=== PATIENT | male | born 1990 | race Caucasian/White ===

== ENCOUNTER 2022-10-30 13:36 | Emergency (ER) | payer OTHER ==
[2022-10-30] MEDS ORDERED: DIAZEPAM 5 MG TABLET ONE (14:07)
[2022-10-30] MEDS ORDERED: HYDROCODONE/APAP 5/325 MG TAB ONE (14:07)
--- NOTE | 2022-10-30 15:42 | EDPHYS ---
Physician Documentation [facility] Name: Kenny Armstrong Age: 32 yrs Sex: Male : 1990 Arrival Date: 10/30/2022 Time: 13:36 Bed 18 Private MD: ED Physician Darien Baptiste HPI: 10/30 14:55 This 32 yrs old Male presents to ER via EMS with complaints of back pain. ms3 14:55 32-year-old male with no past medical history presents emergency department via [address] [facility] for low back pain. 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 Patient states the pain is currently a 3/10 and when it spasms is an 8/10. Patient denies incontinence, weakness, numbness.. Historical: - Allergies: 14:00 No Known Allergies; nj1 - PMHx: 14:00 None; nj1 - PSHx: 14:00 None; nj1 - Immunization history:: Client reports having NOT received the Covid vaccine. - Social history:: Smoking status: Reported history of juuling and/or vaping. ROS: 14:55 Constitutional: Negative for fever, and chills. Neck: Negative for injury, pain, and ms3 swelling, Cardiovascular: Negative for chest pain, and palpitations. Respiratory: Negative for shortness of breath, cough, wheezing, and pleuritic chest pain, Abdomen/GI: Negative for abdominal pain, nausea, vomiting, diarrhea, and constipation. 14:55 MS/Extremity: Negative for injury and deformity, Skin: Negative for injury, rash, and discoloration. 14:55 Back: Positive for back pain. 14:55 All other systems are negative. Exam: 14:55 Constitutional: This is a well developed, well nourished patient who is awake, alert, ms3 and in no acute distress. Head/Face: Normocephalic, atraumatic. Neck: Trachea midline, no cervical lymphadenopathy. Supple, full range of motion without nuchal rigidity, or vertebral point tenderness. No Meningismus. Chest/axilla: Normal chest wall appearance and motion. Nontender with no deformity. Cardiovascular: Regular rate and rhythm with a normal S1 and S2. No gallops, murmurs, or rubs. Normal PMI, no JVD. No pulse deficits. Respiratory: Lungs have equal breath sounds bilaterally, clear to auscultation and percussion. No rales, rhonchi or wheezes noted. No increased work of breathing, no retractions or nasal flaring. Abdomen/GI: Soft, non-tender, with normal bowel sounds. No distension or tympany. No guarding or rebound. No evidence of tenderness throughout. Skin: Warm, dry with normal turgor. Normal color with no rashes, no lesions, and no evidence of cellulitis. MS/ Extremity: Pulses equal, no cyanosis. Neurovascular intact. Full, normal range of motion. 14:55 Back: pain, that is moderate, of the left low back and right low back, ROM is normal, normal spinal alignment noted, CVA tenderness, muscle spasm, is appreciated in the left low back and right low back. Vital Signs: 14:00 BP 106 / 65; Pulse 69; Resp 18; Temp 97.5(O); Pulse Ox 98% on R/A; Weight 117.03 kg; nj1 Height 5 ft. 10 in. ; Pain 10/10; 15:00 BP 103 / 59; Pulse 61; Resp 16; Pulse Ox 96% on R/A; Pain 6/10; nj1 16:15 BP 99 / 59; Pulse 72; Resp 16; Pulse Ox 99% on R/A; Pain 3/10; nj1 14:00 Body Mass Index 37.02 (117.03 kg, 177.8 cm) nj1 14:00 Pain Scale: Adult nj1 15:00 Pain Scale: Adult nj1 16:15 Pain Scale: Adult nj1 MDM: 13:47 Patient medically screened. ms3 14:55 Differential diagnosis: Metastatic Disease vertebral fracture, muscle spasm. ms3 15:52 Data reviewed: vital signs, nurses notes, and as a result, I will discharge patient. I ms3 considered the following discharge prescriptions or medication management in the emergency department Medications were administered in the Emergency Department. See MAR. Administered Medications: 14:01 Drug: HYDROcodone-acetaminophen PO 5 mg-325 mg 1 tabs Route: PO; [facility] 15:00 Follow up: Response: No adverse reaction; Pain is decreased nj1 14:01 Drug: Diazepam PO 5 mg Route: PO; [facility] 15:37 Follow up: Response: No adverse reaction [facility] Disposition Summary: 10/30/22 15:41 Discharge Ordered Location: Home ms3 Condition: Stable ms3 Diagnosis - Low back pain ms3 - Muscle spasm of back ms3 Followup: ms3 - With: - When: 2 - 3 days - Reason: Recheck today's complaints Discharge Instructions: - Discharge Summary Sheet ms3 - Acute Back Pain, Adult ms3 - Spasticity ms3 Forms: - Medication Reconciliation Form ms3 - Thank You Letter ms3 - Antibiotic Education ms3 - Prescription Opioid Use ms3 Prescriptions: - Ibuprofen 600 mg Oral Tablet - take 1 tablet by ORAL route every 6 hours As needed take with food; 30 tablet; ms3 Refills: 0, Product Selection Permitted - Cyclobenzaprine 10 mg Oral Tablet - take 1 tablet by ORAL route every 8 hours As needed; 30 tablet; Refills: 0, ms3 Product Selection Permitted Signatures: Darien Baptiste DO DO ms3 Mary Anne Watkins RN RN nj1
--- NOTE | 2022-10-30 15:42 | ER ---
Nurse's Notes [facility] [place] Name: Kenny Armstrong Age: 32 yrs Sex: Male : 1990 Arrival Date: 10/30/2022 Time: 13:36 Bed 18 Private MD: Diagnosis: Low back pain;Muscle spasm of back Presentation: 10/30 13:38 Chief complaint: EMS states: patient was bending over to grab groceries and felt a nj1 sudden sharp pain in his back, hurting since. 13:38 Coronavirus screen: Vaccine status: Patient reports being unvaccinated. Ebola Screen: nj1 Patient denies travel to an Ebola-affected area in the 21 days before illness onset. 13:38 Method Of Arrival: EMS: [place] [id number] 14:00 Initial Sepsis Screen: Does the patient meet any 2 criteria? No. Patient's initial [facility] sepsis screen is negative. Does the patient have a suspected source of infection? No. Patient's initial sepsis screen is negative. Risk Assessment: Do you want to hurt yourself or someone else? Patient reports no desire to harm self or others. Onset of symptoms was October 30, 2022. 14:00 Acuity: STEPHANIE 3 nj Historical: - Allergies: 14:00 No Known Allergies; nj1 - PMHx: 14:00 None; nj1 - PSHx: 14:00 None; nj1 - Immunization history:: Client reports having NOT received the Covid vaccine. - Social history:: Smoking status: Reported history of juuling and/or vaping. Screenin:00 [facility] ED Fall Risk Assessment (Adult) History of falling in the last 3 months, [facility] including since admission No falls in past 3 months (0 pts) Confusion or Disorientation No (0 pts) Intoxicated or Sedated No (0 pts) Impaired Gait No (0 pts) Mobility Assist Device Used No (0 pt) Altered Elimination No (0 pt) Score/Fall Risk Level 0 - 2 = Low Risk Oriented to surroundings, Maintained a safe environment, Hourly rounding (assess needs \T\ fall precautionary measures) done. 14:00 Abuse screen: Denies threats or abuse. Denies injuries from another. Nutritional nj1 screening: No deficits noted. Tuberculosis screening: No symptoms or risk factors identified. Assessment: 14:27 General: Appears in no apparent distress. uncomfortable, Behavior is calm, cooperative, nj1 appropriate for age. Pain: Complains of pain in back Pain currently is 10 out of 10 on a pain scale. Neuro: Level of Consciousness is awake, alert, obeys commands, Oriented to person, place, time, situation. Cardiovascular: Patient's skin is warm and dry. Respiratory: Airway is patent Respiratory effort is even, unlabored. Musculoskeletal: Reports pain in back. 15:00 Reassessment: Patient appears in no apparent distress at this time. Patient and/or nj1 family updated on plan of care and expected duration. Pain level reassessed. Patient is alert, oriented x 3, equal unlabored respirations, skin warm/dry/pink. Pain: Complains of pain in back Pain currently is 6 out of 10 on a pain scale. 16:15 Reassessment: Patient appears in no apparent distress at this time. Patient and/or nj1 family updated on plan of care and expected duration. Pain level reassessed. Patient is alert, oriented x 3, equal unlabored respirations, skin warm/dry/pink. Patient states feeling better. Patient states symptoms have improved. Vital Signs: 14:00 BP 106 / 65; Pulse 69; Resp 18; Temp 97.5(O); Pulse Ox 98% on R/A; Weight 117.03 kg; nj1 Height 5 ft. 10 in. ; Pain 10/10; 15:00 BP 103 / 59; Pulse 61; Resp 16; Pulse Ox 96% on R/A; Pain 6/10; nj1 16:15 BP 99 / 59; Pulse 72; Resp 16; Pulse Ox 99% on R/A; Pain 3/10; nj1 14:00 Body Mass Index 37.02 (117.03 kg, 177.8 cm) nj1 14:00 Pain Scale: Adult nj1 15:00 Pain Scale: Adult nj1 16:15 Pain Scale: Adult ri1 ED Course: 13:45 Patient arrived in ED. kj1 13:47 Darien Baptiste DO is Attending Physician. ms3 13:53 Mary Anne Watkins, CLAIR is Primary Nurse. nj1 14:00 Arm band placed on. nj1 14:00 Patient has correct armband on for positive identification. Bed in low position. Call [facility] light in reach. Adult w/ patient. 14:22 Triage completed. nj1 15:41 Addi Mena DO is Referral Physician. ms3 16:15 No provider procedures requiring assistance completed. nj1 16:15 Patient did not have IV access during this emergency room visit. nj1 Administered Medications: 14:01 Drug: HYDROcodone-acetaminophen PO 5 mg-325 mg 1 tabs Route: PO; nj1 15:00 Follow up: Response: No adverse reaction; Pain is decreased nj1 14:01 Drug: Diazepam PO 5 mg Route: PO; nj1 15:37 Follow up: Response: No adverse reaction nj1 Medication: 16:20 VIS not applicable for this client. nj1 Outcome: 15:41 Discharge ordered by MD. ms3 16:15 Discharged to home ambulatory, via wheelchair, with family. nj1 16:15 Condition: stable 16:15 Discharge instructions given to patient, Instructed on discharge instructions, follow up and referral plans. medication usage, Demonstrated understanding of instructions, follow-up care, medications, Prescriptions given X 2. 16:20 Patient left the ED. nj1 Signatures: Nini Morrow kj1 Darien Baptiste DO DO ms3 Risa Eason bc6 Mary Anne Watkins, RN RN nj1 Corrections: (The following items were deleted from the chart) 16:49 16:46 Patient left the ED. dani post1
[2022-10-30 16:51] VITALS: TEMP 97.5
[2022-10-30 16:52] VITALS: BP 103/59; O2SAT 96
== END 2022-10-30 16:46 | disposition home or self-care (01) ==
LOC: ER 13:36
DX: M62.830 Muscle spasm of back (principal)
CPT/HCPCS: 99284

== ENCOUNTER 2023-06-15 07:32 | Day surgery (SDC) | payer OTHER ==
[2023-06-10 11:55] LABS: Absolute Lymphocytes (CBC) 2.6 K/uL (0.7-4.9); Hematocrit 44.9 % (39.6-49.0); Lymphocytes % 40.4 % (15.3-44.8); MCV 89.4 fL (80-100); MPV 7.9 fL (7.6-11.3); Platelets 320 thou/uL (152-406); RBC Red Blood Cell Count 5.03 M/uL (4.33-5.43)
[2023-06-10 12:02] LABS: Potassium 3.9 mEq/L (3.5-5.1)
[2023-06-15] MEDS ORDERED: Ringers Lactate 1,000 ML IV ONE (07:56)
[2023-06-15] MEDS ORDERED: CEFAZOLIN SODIUM 1 GM/VIAL ONE ×2 (07:56→08:55)
[2023-06-15] MEDS ORDERED: KETOROLAC 30 MG/ML INJ ONE (08:01)
[2023-06-15] MEDS ORDERED: KETAMINE HCL IN 0.9 % NACL 50 MG/5 ML SYRINGE IV ONE (08:01)
[2023-06-15] MEDS ORDERED: propofoL 200 MG/20 ML VIAL IV ONE (08:01)
[2023-06-15] MEDS ORDERED: LIDOCAINE 2% MPF 5 ML VIAL ONE (08:01)
[2023-06-15] MEDS ORDERED: dexAMETHasone 10 MG/ML VIAL ONE (08:01)
[2023-06-15] MEDS ORDERED: FENTANYL CITR 100 MCG/2 ML ONE (08:01)
[2023-06-15] MEDS ORDERED: ROCURONIUM 50 MG/5 ML VIAL IV ONE (08:01)
[2023-06-15] MEDS ORDERED: ONDANSETRON 4 MG/2 ML VIAL ONE (08:01)
[2023-06-15] MEDS ORDERED: MIDAZOLAM HCL 2 MG/2 ML INJ ONE (08:01)
[2023-06-15] MEDS ORDERED: MUPIROCIN 2% OINT 22GM TUBE TOP ONE (08:32)
--- NOTE | 2023-06-15 10:07 | P.BOP ---
Preoperative diagnosis: tender ventral and umbilical hernia Postoperative diagnosis: same Primary procedure: 1. Laproscopic repair of incarcerated tender upper ventral hernia with mesh Secondary procedure: 2. Laproscopic repair of incarcerated tender umbilical hernia with mesh Estimated blood loss: <20cc Specimen: sac and content Findings: multiple hernias Anesthesia: General Complications: None Implants: vetralight ST with echo PS 15 cm Transferred to: Recovery Room Condition: Good
[2023-06-15] MEDS: MORPHINE 4 MG/ML SYR ONE ×2 (10:32→10:37)
[2023-06-15 11:19] VITALS: BP 117/86; TEMP 96.9; O2SAT 95
[2023-06-15] MEDS ORDERED: HYDROCODONE/APAP 10/325 TAB PO ONE (11:25)
[2023-06-15] MEDS ORDERED: HYDROCODONE/APAP 10/325 TAB ONE (11:29)
--- NOTE | 2023-06-16 15:56 | OP ---
Surgeon: Lionel Clark MD Preoperative Diagnosis: Tender ventral and umbilical hernia about 3 cm. Postoperative Diagnoses: Tender ventral and umbilical hernia about 3 cm, umbilical pain. Procedures Performed: 1.Laparoscopic repair of incarcerated open ventral hernia with mesh about 3.5 cm. 2.Laparoscopic repair of incarcerated tender umbilical hernia with mesh about 3 cm. Those are 2 dif ferent hernias. Estimated Blood Loss: Less than 20 cc. Specimen: Hernia sac and contents. Findings: Multiple hernias. Anesthesia: General plus local. Complications: None. Implants: Ventralight ST with Echo positioning system about 15 cm. Complications: None. Indications: This is a case of a 32-year-old patient, who came with 2 problems, 1 lump in the mid ve ntral region and another lump on the umbilical area. Both of them are tender during pain and discomf ort, is not allowing him to work and modify his social life, so he wants that repaired. The benefits , alternatives, and risks of laparoscopic versus open repair of ventral and umbilical hernia fully ex plained, which include, but not limited to infection, bleeding, damage to adjacent structures, anesth esia complication, recurrence, CA and even . He also understands this may not relieve any sympt oms. He might need more than one surgical intervention. He does not understand we might have to use mesh in that region and pros and cons of mesh were explained to the patient. He signed a consent. Description Of Procedure: The patient was brought to the operating room and placed in supine positio n. Anesthesia was done without complication. Abdominal area was prepped and draped in sterile fashi on. We noticed the patient has multiple scratches in his abdomen. He says he was winterizing his ho use yesterday due to a hard freeze coming to this area in [place] recently and he was not careful enoug h and developed many scratches. At least, they are not on the trocar site area, but we want to make sure that he keeps those areas clean to avoid cross contamination in the next few days. So, we were trying to pick areas that does not have the scratches. The first was done in the umbilical region. Incision was carried down until we have a hernia sac. Hernia sac was opened and then Vicryl #1 place d inside the fascia and Ross trocar was placed in and no bleeding was obtained. This allowed me to see his problem in the ventral region. Once again, another hernia in that region is bigger than the one umbilical area. The umbilicus was about 3 cm. The ventral region was about almost 4 cm. Even though there different locations, our plan is just to refer each one individually and then put a piec e of mesh to overlap both places by 3-5 cm. So, we cleaned the fascia edges of the umbilical region first. Obviously, we have to use LigaSure. There were some adhesions involved to it, especially to the ventral region. Once we removed the adhesions, we were able to reduce the incarcerated omentum p resent of those hernias. Once we got that, we have fascia edges cleaned and noticed that it was a li ttle bit easier for the patient to just make a small incision on the ventral region and repair that d efect primarily on top of the laparoscopic repair. So, we made a small incision, clean the fascia ed ges, approximated that with a Vicryl. After that, we obtained pneumoperitoneum again to look from in side, now we have a seal. We put selected a 15 cm mesh once again to overlap both areas early to 3-1 5 cm that is a Ventralex ST mesh, put it through the one of the incisions and then inflate the balloo n laparoscopically and removed the Ross trocar since this is the area we are using to put a mesh th rough. Then, we approximated the Vicryl in the umbilical region and enough to be able to inflate the balloon and secure that mesh using SorbaFix, and then the balloon catheter was removed. The balloon was then removed under direct visualization of the abdomen and further fixation circumferentially wa s done of the mesh to make sure a good opposition against the peritoneum. At that moment, we already closed also the umbilical hernia with a [id number] fashion Vicryl. Once we have that laparosco pic, we looked at the area of the lysis of adhesions. There was no bleeding and then when we looked at the hernia, they were not just airproof but also the mesh is underneath nice and flat, covering azeb th defects. At that moment, I proceeded to carefully deflate the pneumoperitoneum, removed the troca rs under direct visualization. We closed the subcutaneous tissue with 3-0 chromic and skin with stap les. Sponge count and instrument count correct. The patient tolerated the procedure well. The eloy ent was sent to recovery in stable condition. Disposition: Home. Activity: As tolerated. No heavy lifting. Plan: Follow up in my office in 1 week. Call for appointment at [phone]. Abdominal binder while o ut of bed. Keep area dry for 48 hours, then may shower. Keep the adeola intact. PEDRO PABLO/MODL Voice ID: [id number] Report ID: [id number]
== END 2023-06-15 11:49 | disposition home or self-care (01) ==
LOC: OR 07:32
PROVIDERS: ATTEND Surgery
PROC: 0WUF4JZ Supplement Abdominal Wall with Synthetic Substitute, Percutaneous Endoscopic Approach (ICD-10-PCS; principal; 2023-06-15 08:30)
DX: K42.0 Umbilical hernia with obstruction, without gangrene (principal); K43.6 Other and unspecified ventral hernia with obstruction, without gangrene
CPT/HCPCS: 49594; 85025; 80048; 36415; 88302; J2704; J2001; J2250; J3010; J1100; J2405; J7120; J0690 ×2; 88304